=== PATIENT | female | born 1975 | race Caucasian/White ===

== ENCOUNTER 2016-03-14 09:24 | Emergency (ER) | payer OTHER ==
[2016-03-14 10:04] VITALS: TEMP 99.7
[2016-03-14] MEDS ORDERED: DIPHENHYDRAMINE 50 MG/ML SOL IV ONE (10:23)
[2016-03-14] MEDS ORDERED: PROMETHAZINE HYDROCHLORIDE 25 MG/ML SOL IV ONE ×2 (10:24→11:20)
[2016-03-14] MEDS ORDERED: SODIUM CHLORIDE 0.9% 1000ML 1,000 ML IV ONE (10:26)
[2016-03-14] MEDS ORDERED: HYDROMORPHONE HCL 2 MG/ML 1 ML SOL ONE ×2 (10:30→11:37)
[2016-03-14] MEDS ORDERED: DIPHENHYDRAMINE 50 MG/ML SOL ONE (10:31)
[2016-03-14] MEDS ORDERED: PROMETHAZINE HYDROCHLORIDE 25 MG/ML SOL ONE ×2 (10:31→11:37)
[2016-03-14] MEDS: HYDROMORPHONE HCL 2 MG/ML 1 ML SOL IV PRN ×2 (10:40→11:43)
[2016-03-14 10:49] LABS: BASOPHILS % (AUTO) 1 % (0-3); EOSINOPHILS % (AUTO) 2 % (0-9); HEMATOCRIT 43 % (35-47); MEAN CORPUSCULAR HGB CONC 35.1 gm/dl (32.0-36.0); MEAN CORPUSCULAR VOLUME 87 fL (81-99); MONOCYTES % (AUTO) 7.1 % (0-12); NEUTROPHILS % (AUTO) 66.8 % (37-80)
[2016-03-14 11:01] LABS: ALBUMIN 4.1 gm/dl (3.4-5.0); CALCIUM 9.3 mg/dl (8.5-10.1); POTASSIUM 4.3 mMol/L (3.5-5.1)
[2016-03-14 11:34] LABS: APPEARANCE,URINE Clear; BILIRUBIN,URINE NEGATIVE (NEGATIVE); COLOR,URINE Yellow; GLUCOSE, URINE (UA) NEGATIVE (NEGATIVE); KETONES,URINE NEGATIVE (NEGATIVE); LEUKOCYTE ESTERASE ,URINE NEGATIVE (NEGATIVE); NITRATE,URINE NEGATIVE (NEGATIVE); OCCULT BLOOD,URINE 3+ (NEG-TRACE); PH,URINE 7.5; UROBILINOGEN,URINE 0.2 (0.2-1.0 EU)
[2016-03-14] MEDS: SODIUM CHLORIDE 0.9% FLUSH 10 ML SOL IV PRN ×2 (11:43→13:23)
[2016-03-14 11:51] LABS: RBC,URINE 15-25 (0-3AV/HPF); WBC,URINE 0-3 (0-5AV/HPF)
[2016-03-14] MEDS ORDERED: PROCHLORPERAZINE EDISYLATE 5 MG/ML SOL IV ONE (12:39)
[2016-03-14] MEDS ORDERED: LORAZEPAM 2 MG/ML SOL IV ONE (12:39)
[2016-03-14] MEDS ORDERED: PROCHLORPERAZINE EDISYLATE 5 MG/ML SOL ONE (12:42)
[2016-03-14] MEDS ORDERED: LORAZEPAM 2 MG/ML SOL ONE (13:10)
[2016-03-14 14:39] VITALS: RESP 16
[2016-03-14 15:05] VITALS: BP 122/77; PULSE 92; O2SAT 93
== END 2016-03-14 14:29 | disposition home or self-care (01) | DRG 392 ==
LOC: ED 09:24
DX: K52.9 Noninfective gastroenteritis and colitis, unspecified (principal)
CPT/HCPCS: 36415; 71010; 74176; 80053; 81001; 85025; 87804; 96365; 96374; 96375; 99284; 99285; J0780; J1170; J1200; J2060; J2550

== ENCOUNTER 2016-03-23 11:07 | Emergency (ER) | payer OTHER ==
[2016-03-23 11:20] VITALS: RESP 20; TEMP 99.1
[2016-03-23] MEDS ORDERED: APAP/HYDROCODONE 325/5 TAB PO ONE (11:30)
[2016-03-23] MEDS ORDERED: PREDNISONE 20 MG TAB PO ONE (11:30)
[2016-03-23] MEDS ORDERED: PROMETHAZINE HYDROCHLORIDE 25 MG/ML SOL IM ONE (11:30)
[2016-03-23] MEDS ORDERED: PROMETHAZINE HYDROCHLORIDE 25 MG/ML SOL ONE (11:57)
[2016-03-23 12:56] VITALS: BP 129/85; PULSE 89; O2SAT 96
== END 2016-03-23 12:40 | disposition home or self-care (01) | DRG 60 ==
LOC: ED 11:07
DX: G35 Multiple sclerosis (principal); M79.604 Pain in right leg; M79.605 Pain in left leg
CPT/HCPCS: 96372; 99283; J2550